=== PATIENT | female | born 1950 | race Caucasian/White ===

== ENCOUNTER 2019-04-08 09:12 | Emergency (ER) | payer MEDICARE, BC ==
[2019-04-08 09:43] LABS: GLUCOSE, URINE (UA) NEGATIVE (NEGATIVE); KETONES,URINE (UA) 15 mg/dL (NEGATIVE); LEUKOCYTE ESTERASE, URINE MODERATE (NEGATIVE); NITRITE,URINE NEGATIVE (NEGATIVE); OCCULT BLOOD,URINE SMALL (NEGATIVE); PROTEIN,URINE NEGATIVE (NEGATIVE); UROBILINOGEN,URINE 0.2 (NORMAL) E.U./dL (NORMAL)
[2019-04-08 09:50] LABS: BILIRUBIN,URINE NEGATIVE (NEGATIVE); CLARITY,URINE CLEAR (CLEAR); ICTOTEST,URINE NEGATIVE
[2019-04-08 09:51] LABS: BACTERIA,URINE Few /HPF (None Seen); RBC,URINE None Seen /HPF (0-5); SQUAMOUS EPITHELIAL CELL,UR FEW Squamous (<= Few)
[2019-04-08 09:51] LABS: BASOPHILS % (AUTO) 0.1 %; EOSINOPHILS # (AUTO) 0.3 10^3/uL (0.0-0.7); EOSINOPHILS % (AUTO) 3.7 %; HGB - HEMOGLOBIN 13.6 g/dL (12.0-16.0); LYMPHOCYTES # (AUTO) 1.2 10^3/uL (1.5-3.5); LYMPHOCYTES % (AUTO) 15.8 %; MEAN CORPUSCULAR VOLUME 90.7 fL (81.0-99.0); MONOCYTES # (AUTO) 0.5 10^3/uL (0.0-1.0); MONOCYTES % (AUTO) 6.4 %; NEUTROPHILS # (AUTO) 5.7 10^3/uL (1.5-6.6); NEUTROPHILS % (AUTO) 73.6 %; PLT - PLATELET COUNT 211 10^3/uL (130-450); RED BLOOD COUNT 4.54 10^6/uL (4.20-5.40); RED CELL DISTRIBUTION WIDTH 12.8 % (12.0-15.0); WHITE BLOOD COUNT 7.7 x10^3/uL (4.8-10.8)
[2019-04-08 10:05] LABS: ALBUMIN 4.2 g/dL (3.2-5.5); ALBUMIN/GLOBULIN RATIO 1.2 (1.0-2.2); BILIRUBIN,TOTAL 0.6 mg/dL (0.2-1.0); CALCIUM 9.2 mg/dL (8.5-10.3); CREATININE 0.8 mg/dL (0.4-1.0); TOTAL PROTEIN 7.6 g/dL (6.7-8.2)
[2019-04-08] MEDS ORDERED: SODIUM CHLORIDE 0.9% 1,000 ML IV ONE (10:14)
[2019-04-08] MEDS ORDERED: FAMOTIDINE 20 MG/2 ML VIAL IVP STA (10:14)
[2019-04-08] MEDS ORDERED: IOVERSOL 320 100 ML VIAL IVP ONE ×2 (10:31→10:39)
--- NOTE | 2019-04-08 11:15 | CT Report ---
Reason: Left sided abdominal pain Procedure Date: 04/08/2019 Accession Number: [id number] / [id number] Procedure: CT - Abdomen/Pelvis W CPT Code: FULL RESULT: EXAM: CT ABDOMEN AND PELVIS EXAM DATE: 04/08/2019 10:38 AM. CLINICAL HISTORY: Left-sided abdominal pain. COMPARISONS: None. TECHNIQUE: Routine helical CT imaging was performed through the abdomen and pelvis. IV contrast: 90 mL of Optiray 320. Enteric contrast: No. Reconstructions: Coronal and sagittal. In accordance with CT protocol optimization, one or more of the following dose reduction techniques were utilized for this exam: automated exposure control, adjustment of mA and/or KV based on patient size, or use of iterative reconstructive technique. FINDINGS: Lung Bases: Linear areas of subsegmental atelectasis in the medial segment of the right middle lobe and the inferior segment of the lingula. The heart size is normal. No hiatal hernia. Liver: Normal. No masses. Gallbladder/Bile Ducts: Unremarkable. Spleen: Normal. Pancreas: Normal. Adrenal Glands: Normal. Kidneys: Normal. No masses or hydronephrosis. Peritoneal Cavity/Bowel: Sigmoid colon diverticulosis without diverticulitis. No free fluid, free air or adenopathy. No masses or acute inflammatory process. The appendix is well visualized and normal. Pelvic Organs: Normal. The bladder and visualized pelvic organs are within normal limits. Vasculature: No aneurysms or other significant abnormality. Bones: No significant abnormality. Bilateral facet arthrosis at L5-S1. Other: None. IMPRESSION: 1. No acute inflammatory process in the abdomen or pelvis. 2. Sigmoid colon diverticulosis without diverticulitis. 3. Normal appendix. 4. Bibasal subsegmental atelectasis. RADIA
[2019-04-08] MEDS ORDERED: cefTRIAXone 1 GM in SODIUM CHLORIDE 0.9% MINIBAG 100 ML IV STA (11:26)
--- NOTE | 2019-04-08 11:26 | ED Physician Documentation ---
PD HPI ABD PAIN - Stated complaint Stated Complaint: ABD SWELLING/UNABLE TO EAT - Chief complaint Chief Complaint: Abd Pain - History obtained from History obtained from: Patient - History of Present Illness Timing - onset: How many days ago (2) Timing - duration: Days (2) Timing - details: Still present Quality: Pain Location: LUQ, Suprapubic Worsened by: Eating Associated symptoms: Fever, Nausea. No: Vomiting, Diarrhea, Dysuria Similar symptoms before: Treatment (History of similar symptoms 4 years ago, treated with pantoprazole.) - Additional information Additional information: The patient is a 68-year-old female who presents with abdominal pain that started 2 days ago and has been waxing and waning since that time. It is located mostly in the left upper quadrant, and is worse with eating. She reports associated nausea, but denies vomiting. She denies diarrhea or dysuria. She has noticed low-grade fever. She reports history of similar symptoms about 4 years ago, treated with pantoprazole. Review of Systems Constitutional: reports: Fever Nose: denies: Congestion Throat: denies: Sore throat Cardiac: denies: Chest pain / pressure Respiratory: denies: Dyspnea, Cough GI: reports: Abdominal Pain, Nausea. denies: Vomiting, Diarrhea : denies: Dysuria Skin: denies: Rash Musculoskeletal: denies: Back pain Neurologic: denies: Headache PD PAST MEDICAL HISTORY - Past Medical History Cardiovascular: High cholesterol Endocrine/Autoimmune: HyPOthyroidism GI: GERD - Past Surgical History Past Surgical History: Yes - Present Medications Home Medications: Ambulatory Orders Medication Instructions Recorded Confirmed Atorvastatin Calcium [Lipitor] 10 mg PO DAILY 04/30/14 04/08/19 Levothyroxine [Synthroid] 50 mcg PO QDAC 05/19/16 04/08/19 Pantoprazole Sodium 40 mg PO BID 09/20/16 04/08/19 Nitrofurantoin Monohyd/M-Cryst 100 mg PO BID #10 capsule 04/08/19 [Macrobid 100 mg Capsule] Phenazopyridine HCl [Pyridium] 200 mg PO TID PRN #6 tablet 04/08/19 - Allergies Allergies/Adverse Reactions: Allergies Allergy/AdvReac Type Severity Reaction Status Date / Time sulfamethoxazole Allergy Nausea Verified 04/08/19 09:19 [From Bactrim] trimethoprim [From Bactrim] Allergy Nausea Verified 04/08/19 09:19 - Social History Does the pt smoke?: No Smoking Status: Never smoker Does the pt drink ETOH?: Yes Does the pt have substance abuse?: No - Immunizations Immunizations are current?: Yes - POLST Patient has POLST: No PD ED PE NORMAL - Vitals Vital signs reviewed: Yes (normal) - General General: Alert and oriented X 3, Well developed/nourished - HEENT HEENT: Atraumatic, Pharynx benign - Neck Neck: No adenopathy, No JVD - Cardiac Cardiac: RRR - Respiratory Respiratory: No respiratory distress, Clear bilaterally - Abdomen Abdomen: Normal bowel sounds, Soft, Other (Mild tenderness to palpation in the left upper quadrant, without rebound tenderness or guarding. There is also mild tenderness in the suprapubic region.) - Back Back: No CVA TTP - Derm Derm: No rash - Extremities Extremities: No edema, No calf tenderness / cord - Neuro Neuro: Alert and oriented X 3, No motor deficit, Normal speech Results - Vitals Vitals: Oxygen O2 Source Room air - Labs Labs: Microbiology 04/08/19 09:25 Urine Culture - Final Urine,Clean Catch 10-50,000 COLONIES/ML Polymicrobial growth including potential pathogens. This is suggestive of skin or other contamination. Laboratory Tests 04/08/19 04/08/19 04/08/19 09:25 09:37 09:37 WBC 7.7 RBC 4.54 Hgb 13.6 Hct 41.2 MCV 90.7 MCH 30.0 MCHC 33.0 RDW 12.8 Plt Count 211 MPV 9.0 Neut # (Auto) 5.7 Lymph # (Auto) 1.2 [place] # (Auto) 0.5 Eos # (Auto) 0.3 Baso # (Auto) 0.0 Absolute Nucleated RBC 0.00 Nucleated RBC % 0.0 Sodium 140 Potassium 3.9 Chloride 101 Carbon Dioxide 26 Anion Gap 13.0 BUN 15 Creatinine 0.8 Estimated GFR (MDRD) 72 L Glucose 108 H Calcium 9.2 Total Bilirubin 0.6 AST 20 ALT 25 Alkaline Phosphatase 52 Total Protein 7.6 Albumin 4.2 Globulin 3.4 Albumin/Globulin Ratio 1.2 Lipase 48 Urine Color YELLOW Urine Clarity CLEAR Urine pH 6.0 Ur Specific [place] 1.010 Urine Protein NEGATIVE Urine Glucose (UA) NEGATIVE Urine Ketones 15 H Urine Occult Blood SMALL H Urine Nitrite NEGATIVE Urine Bilirubin NEGATIVE Urine Urobilinogen 0.2 (NORMAL) Ur Leukocyte Esterase MODERATE H Urine RBC None Seen Urine WBC 6-10 H Ur Squamous Epith Cells FEW Squamous Urine Bacteria Few Ur Microscopic Review INDICATED Urine Culture Comments INDICATED - Rads (name of study) CT abd/pelvis w/ Radiology: Prelim report reviewed, EMP read contemporaneously, See rad report (1) No acute inflammatory process in the abdomen or pelvis. 2) Sigmoid colon diverticulosis without diverticulitis. 3) Normal appendix. 4) Bibasal subsegmental atelectasis.) PD MEDICAL DECISION MAKING - ED course Complexity details: reviewed old records, reviewed results, re-evaluated patient, considered differential, d/w patient ED course: The patient's abdominal pain is most consistent with acid peptic disease. CT scan of the abdomen and pelvis reveals no evidence of perforation, abscess, or other surgical abdominal process. CBC reveals a normal white count of 7.7. Chemistry panel is unremarkable, with normal liver enzymes and lipase. Urinalysis is positive for pyuria and bacteriuria. Her presentation does not suggest pyelonephritis. Treatment in the emergency department included administration of normal saline 1 L IV, famotidine 10 mg IV, and ceftriaxone 1 g IV. She felt subjectively improved after the above treatment, and reexamination reveals a benign abdomen. She is being discharged with prescriptions for Macrobid and Pyridium. She has pantoprazole at home which she will resume taking. I discussed with her the likely diagnosis, outpatient treatment and follow-up, as well as potentially worrisome signs or symptoms that should prompt reevaluation in the emergency department. Departure - Departure Disposition: 01 Home, Self Care Clinical Impression: Gastritis Qualifiers: Gastritis type: unspecified gastritis Chronicity: acute Gastritis bleeding: without bleeding Qualified Code(s): K29.00 - Acute gastritis without bleeding Urinary tract infection Qualifiers: Urinary tract infection type: acute cystitis Hematuria presence: without hematuria Qualified Code(s): N30.00 - Acute cystitis without hematuria Condition: Stable Instructions: ED PUD Vs Gastritis, ED UTI Cystitis Female Follow-Up: ZECHARIAH RIZVI [Primary Care Provider] - Prescriptions: Nitrofurantoin Monohyd/M-Cryst [Macrobid 100 mg Capsule] 100 mg PO BID #10 capsule Phenazopyridine HCl [Pyridium] 200 mg PO TID PRN #6 tablet PRN Reason: dysuria Comments: Take Macrobid twice daily as prescribed. You can use Pyridium as prescribed if needed for painful urination. Resume taking pantoprazole as you have been previously prescribed. You can also use liquid antacid, such as Maalox or Mylanta, if you develop recurrent epigastric discomfort. Follow-up with your primary physician within 1 week. Call to schedule an appointment. Return to the emergency department if you develop increasing abdominal pain, persistent vomiting, fever with shaking chills, or otherwise worsening symptoms. Discharge Date/Time: 04/08/19 14:15
[2019-04-08 14:15] VITALS: BP 124/74
== END 2019-04-08 14:15 | disposition home or self-care (01) ==
LOC: ED 09:12
DX: K29.00 Acute gastritis without bleeding (principal); N30.00 Acute cystitis without hematuria; E78.00 Pure hypercholesterolemia, unspecified; E03.9 Hypothyroidism, unspecified
CPT/HCPCS: 36415; 74177; 80053; 81001; 83690; 85025; 87086; 96361; 96365; 96375; 99283; Q9967; 81003

== ENCOUNTER 2019-04-14 12:14 | Emergency (ER) | payer MEDICARE, BC ==
[2019-04-14] MEDS ORDERED: SODIUM CHLORIDE 0.9% 1,000 ML IV ONE ×3 (12:45→14:27)
[2019-04-14] MEDS ORDERED: ONDANSETRON 4 MG/2 ML VIAL IVP STA (12:46)
--- NOTE | 2019-04-14 13:26 | ED Physician Documentation ---
History of Present Illness - Stated complaint Stated Complaint: CRAMPING/COLD SWEAT - Chief complaint Chief Complaint: Abd Pain - History obtained from History obtained from: Patient - History of Present Illness Timing: Other (ongoing for the past week) Pain level max: 10 Pain level now: 10 - Additonal information Additional information: 68-year-old female presents to the emergency department abdominal pain, nausea, vomiting and diarrhea today. This been ongoing since last week. Was seen here, normal labs, normal CT and treated for UTI. Her doctor told her it to stop with the antibiotics the next day. She has had no fevers. No back pain. She was weak and dizzy today as well. She became clammy when the pain was severe. Review of Systems Constitutional: denies: Fever, Chills Throat: denies: Sore throat Cardiac: denies: Chest pain / pressure Respiratory: denies: Cough GI: reports: Nausea, Vomiting, Diarrhea. denies: Hematemesis, Bloody / black stool Skin: denies: Rash Musculoskeletal: denies: Neck pain, Back pain Neurologic: denies: Headache PD PAST MEDICAL HISTORY - Past Medical History Past Medical History: Yes Cardiovascular: High cholesterol Endocrine/Autoimmune: HyPOthyroidism GI: GERD - Past Surgical History Past Surgical History: Yes - Present Medications Home Medications: Ambulatory Orders Medication Instructions Recorded Confirmed Atorvastatin Calcium [Lipitor] 10 mg PO DAILY 04/30/14 04/08/19 Levothyroxine [Synthroid] 50 mcg PO QDAC 05/19/16 04/08/19 Pantoprazole Sodium 40 mg PO BID 09/20/16 04/08/19 Nitrofurantoin Monohyd/M-Cryst 100 mg PO BID #10 capsule 04/08/19 [Macrobid 100 mg Capsule] Phenazopyridine HCl [Pyridium] 200 mg PO TID PRN #6 tablet 04/08/19 Ciprofloxacin HCl [Cipro] 500 mg PO BID #20 tablet 04/14/19 Hyoscyamine Sulfate [Levsin-Sl] 0.125 mg SL Q6H #14 tab.subl 04/14/19 Metronidazole [Flagyl] 500 mg PO BID #20 tablet 04/14/19 Ondansetron Odt [Zofran] 4 mg TL Q6H PRN #10 tablet 04/14/19 - Allergies Allergies/Adverse Reactions: Allergies Allergy/AdvReac Type Severity Reaction Status Date / Time sulfamethoxazole Allergy Nausea Verified 04/14/19 12:22 [From Bactrim] trimethoprim [From Bactrim] Allergy Nausea Verified 04/14/19 12:22 - Social History Does the pt smoke?: No Smoking Status: Never smoker Does the pt drink ETOH?: Yes Does the pt have substance abuse?: No - Immunizations Immunizations are current?: Yes - POLST Patient has POLST: No PD ED PE NORMAL - Vitals Vital signs reviewed: Yes - General General: Alert and oriented X 3, No acute distress, Well developed/nourished - HEENT HEENT: Moist mucous membranes - Neck Neck: Supple, no meningeal sign - Cardiac Cardiac: RRR, No murmur - Respiratory Respiratory: No respiratory distress, Clear bilaterally - Abdomen Abdomen: Soft, Non distended, Other (Mild diffuse tenderness to palpation.) - Back Back: No CVA TTP, No spinal TTP - Derm Derm: Warm and dry, No rash - Extremities Extremities: No edema - Neuro Neuro: Alert and oriented X 3 - Psych Psych: Normal mood, Normal affect Results - Vitals Vitals: Vital Signs - 24 hr 04/14/19 04/14/19 04/14/19 12:18 12:30 13:32 Temperature 34.0 C L 36.6 C Heart Rate 53 L 57 L 65 Respiratory 18 21 24 Rate Blood Pressure 99/48 L 122/69 106/74 O2 Saturation 100 100 100 04/14/19 04/14/19 14:00 16:05 Temperature 36.8 C Heart Rate 68 77 Respiratory 21 16 Rate Blood Pressure 131/89 H 137/77 H O2 Saturation 95 99 Oxygen O2 Source Room air - EKG (time done) 1239 Rate: Rate (enter#) (58) Rhythm: NSR [place]: Normal Intervals: Normal [place] QRS: Normal Ischemia: Normal ST segments - Labs Labs: Microbiology 04/14/19 13:35 Campylobacter Antigen Assay - Final Stool Laboratory Tests 04/14/19 04/14/19 04/14/19 12:47 13:04 13:04 WBC 12.8 H RBC 4.77 Hgb 14.0 Hct 43.6 MCV 91.4 MCH 29.4 MCHC 32.1 RDW 12.4 Plt Count 275 MPV 9.9 Neut # (Auto) 9.3 H Lymph # (Auto) 2.6 [place] # (Auto) 0.5 Eos # (Auto) 0.4 Baso # (Auto) 0.1 Absolute Nucleated RBC 0.00 Nucleated RBC % 0.0 Sodium 142 Potassium 4.2 Chloride 105 Carbon Dioxide 20 L Anion Gap 17.0 H BUN 22 H Creatinine 0.9 Estimated GFR (MDRD) 62 L Glucose 160 H POC Whole Bld Glucose 138 H Calcium 10.1 Total Bilirubin 1.0 AST 32 ALT 35 Alkaline Phosphatase 58 Total Protein 7.4 Albumin 4.3 Globulin 3.1 Albumin/Globulin Ratio 1.4 Lipase 61 H Urine Color Urine Clarity Urine pH Ur Specific [place] Urine Protein Urine Glucose (UA) Urine Ketones Urine Occult Blood Urine Nitrite Urine Bilirubin Urine Urobilinogen Ur Leukocyte Esterase Ur Microscopic Review Urine Culture Comments C. difficile Tox B Gene 04/14/19 04/14/19 13:35 15:31 WBC RBC Hgb Hct MCV MCH MCHC RDW Plt Count MPV Neut # (Auto) Lymph # (Auto) [place] # (Auto) Eos # (Auto) Baso # (Auto) Absolute Nucleated RBC Nucleated RBC % Sodium Potassium Chloride Carbon Dioxide Anion Gap BUN Creatinine Estimated GFR (MDRD) Glucose POC Whole Bld Glucose Calcium Total Bilirubin AST ALT Alkaline Phosphatase Total Protein Albumin Globulin Albumin/Globulin Ratio Lipase Urine Color YELLOW Urine Clarity CLEAR Urine pH 6.5 Ur Specific [place] <=1.005 Urine Protein NEGATIVE Urine Glucose (UA) NEGATIVE Urine Ketones 15 H Urine Occult Blood NEGATIVE Urine Nitrite NEGATIVE Urine Bilirubin NEGATIVE Urine Urobilinogen 0.2 (NORMAL) Ur Leukocyte Esterase NEGATIVE Ur Microscopic Review NOT INDICATED Urine Culture Comments NOT INDICATED C. difficile Tox B Gene NEGATIVE - Rads (name of study) CT abd/pelvis Radiology: Prelim report reviewed, EMP read contemporaneously, See rad report (Mild diffuse distal bowel wall thickening compatible with an enteritis, infectious versus noninfectious. Minimal diverticulosis and other chronic or incidental findings. ) PD MEDICAL DECISION MAKING - ED course Complexity details: reviewed results, re-evaluated patient, considered differential, d/w patient ED course: 68-year-old female with what appears to be gastroenteritis. She is well- appearing, nontoxic. Afebrile. She appeared to have a vagal reaction to the cramping earlier. This resolved. She had several large bowel movements in the emergency department. Will place on Cipro Flagyl in case this is infectious. Discussed the case with her PCP. Patient is well-appearing, nontoxic. Patient counseled regarding signs and symptoms for which I believe and urgent re- evaluation would be necessary. Patient with good understanding of and agreement to plan and is comfortable going home at this time This document was made in part using voice recognition software. While efforts are made to proofread this document, sound alike and grammatical errors may occur. Departure - Departure Disposition: 01 Home, Self Care Clinical Impression: Gastroenteritis Condition: Good Instructions: ED Gastroenteritis Viral Follow-Up: ZECHARIAH RIZVI [Primary Care Provider] - Within 1 week Prescriptions: Ciprofloxacin HCl [Cipro] 500 mg PO BID #20 tablet Hyoscyamine Sulfate [Levsin-Sl] 0.125 mg SL Q6H #14 tab.subl Metronidazole [Flagyl] 500 mg PO BID #20 tablet Ondansetron Odt [Zofran] 4 mg TL Q6H PRN #10 tablet PRN Reason: Nausea / Vomiting Comments: this should improve over the next few days. Return if you worsen. Drink plenty of water. Discharge Date/Time: 04/14/19 16:26
[2019-04-14 13:28] LABS: BASOPHILS # (AUTO) 0.1 10^3/uL (0.0-0.1); BASOPHILS % (AUTO) 0.5 %; EOSINOPHILS # (AUTO) 0.4 10^3/uL (0.0-0.7); EOSINOPHILS % (AUTO) 2.9 %; LYMPHOCYTES # (AUTO) 2.6 10^3/uL (1.5-3.5); MEAN CORPUSCULAR HEMOGLOBIN 29.4 pg (27.0-31.0); MEAN CORPUSCULAR HGB CONC 32.1 g/dL (32.0-36.0); MEAN CORPUSCULAR VOLUME 91.4 fL (81.0-99.0); MEAN PLATELET VOLUME 9.9 fL (7.9-10.8); MONOCYTES # (AUTO) 0.5 10^3/uL (0.0-1.0); MONOCYTES % (AUTO) 3.7 %; NEUTROPHILS # (AUTO) 9.3 10^3/uL (1.5-6.6); NEUTROPHILS % (AUTO) 72.3 %; PLT - PLATELET COUNT 275 10^3/uL (130-450); RED BLOOD COUNT 4.77 10^6/uL (4.20-5.40); RED CELL DISTRIBUTION WIDTH 12.4 % (12.0-15.0); WHITE BLOOD COUNT 12.8 x10^3/uL (4.8-10.8)
[2019-04-14] MEDS ORDERED: MORPHINE 2 MG/ML CARPUJECT IVP STA (13:33)
[2019-04-14] MEDS ORDERED: HYOSCYAMINE SL 0.125 MG TABLET SL STA (13:33)
[2019-04-14 13:42] LABS: ALBUMIN 4.3 g/dL (3.2-5.5); ALBUMIN/GLOBULIN RATIO 1.4 (1.0-2.2); CALCIUM 10.1 mg/dL (8.5-10.3); CREATININE 0.9 mg/dL (0.4-1.0); TOTAL PROTEIN 7.4 g/dL (6.7-8.2)
[2019-04-14] MEDS ORDERED: IOVERSOL 320 100 ML VIAL IVP ONE ×2 (13:44→13:57)
--- NOTE | 2019-04-14 14:18 | CT Report ---
Reason: diffuse abd pain, vomiting, diarrhea Procedure Date: 04/14/2019 Accession Number: [id number] / [id number] Procedure: CT - Abdomen/Pelvis W CPT Code: FULL RESULT: EXAM: CT ABDOMEN AND PELVIS EXAM DATE: 04/14/2019 01:56 PM. CLINICAL HISTORY: Diffuse abd pain, vomiting, diarrhea. COMPARISONS: ABDOMEN/PELVIS W/ 04/08/2019 10:36 AM. TECHNIQUE: Routine helical CT imaging was performed through the abdomen and pelvis. IV contrast: OPTI 320 90ML. Enteric contrast: No. Reconstructions: Coronal and sagittal. In accordance with CT protocol optimization, one or more of the following dose reduction techniques were utilized for this exam: automated exposure control, adjustment of mA and/or KV based on patient size, or use of iterative reconstructive technique. FINDINGS: Lung Bases: Unremarkable. Liver: Small hemangioma in posterior right lobe. Otherwise unremarkable. Gallbladder/Bile Ducts: Unremarkable. Spleen: Normal. Pancreas: Normal. Adrenal Glands: Normal. Kidneys: Normal. No masses or hydronephrosis. Peritoneal Cavity/Bowel: Minimal colonic diverticulosis. Mild diffuse wall thickening in the distal descending and sigmoid colon measuring about 6 mm. No bowel dilation, free fluid, free air, or lymphadenopathy. Minimal prominence of mesenteric lymph nodes increased slightly since previous exam. The appendix is well visualized and normal. Pelvic Organs: Unremarkable urinary bladder. Retroflexed uterus. Vasculature: No aneurysms or other significant abnormality. Bones: No significant abnormality. Other: None. IMPRESSION: 1. Mild diffuse distal bowel wall thickening compatible with an enteritis, infectious versus noninfectious. 2. Minimal diverticulosis and other chronic or incidental findings. RADIA
[2019-04-14 15:48] LABS: BILIRUBIN,URINE NEGATIVE (NEGATIVE); GLUCOSE, URINE (UA) NEGATIVE (NEGATIVE); KETONES,URINE (UA) 15 mg/dL (NEGATIVE); LEUKOCYTE ESTERASE, URINE NEGATIVE (NEGATIVE); NITRITE,URINE NEGATIVE (NEGATIVE); OCCULT BLOOD,URINE NEGATIVE (NEGATIVE); PH,URINE 6.5 PH (5.0-7.5); PROTEIN,URINE NEGATIVE (NEGATIVE); UROBILINOGEN,URINE 0.2 (NORMAL) E.U./dL (NORMAL)
[2019-04-14 15:49] LABS: CLARITY,URINE CLEAR (CLEAR)
[2019-04-14 16:06] VITALS: BP 137/77
== END 2019-04-14 16:26 | disposition home or self-care (01) ==
LOC: ED 12:14
DX: K52.9 Noninfective gastroenteritis and colitis, unspecified (principal)
CPT/HCPCS: 36415; 74177; 80053; 81003; 83690; 85025; 87045; 87046; 87493; 93005; 96361; 96374; 99284; A9270; Q9967; 81001; 87086

== ENCOUNTER 2023-10-10 08:00 | Outpatient (CLI) | payer MEDICARE, BC | END 2023-10-10 23:59 | disposition home or self-care (01) | LOC: LAB.N 08:00 | PROVIDERS: ATTEND Physician Assistant Medical | DX: R10.2 Pelvic and perineal pain (principal) | CPT/HCPCS: 87077; 87086; 87181 ==

== ENCOUNTER 2023-10-19 15:15 | Outpatient (CLI) | payer MEDICARE, BC ==
[2023-10-19 17:47] LABS: BASOPHILS % (AUTO) 0.4 %; EOSINOPHILS # (AUTO) 0.1 10^3/uL (0.0-0.7); HCT - HEMATOCRIT 43.7 % (37.0-47.0); LYMPHOCYTES # (AUTO) 2.5 10^3/uL (1.5-3.5); LYMPHOCYTES % (AUTO) 25.8 %; MEAN CORPUSCULAR VOLUME 90.7 fL (81.0-99.0); MEAN PLATELET VOLUME 10.2 fL (7.9-10.8); MONOCYTES # (AUTO) 0.7 10^3/uL (0.0-1.0); MONOCYTES % (AUTO) 6.8 %; NEUTROPHILS # (AUTO) 6.3 10^3/uL (1.5-6.6); NEUTROPHILS % (AUTO) 65.6 %; PLT - PLATELET COUNT 322 10^3/uL (130-450); RED BLOOD COUNT 4.82 10^6/uL (4.20-5.40); RED CELL DISTRIBUTION WIDTH 12.6 % (12.0-15.0); WHITE BLOOD COUNT 9.7 x10^3/uL (4.8-10.8)
== END 2023-10-19 15:30 | disposition home or self-care (01) ==
LOC: LAB.N 15:15
PROVIDERS: ATTEND Family Medicine
DX: R10.2 Pelvic and perineal pain (principal)
CPT/HCPCS: 36415; 85025; 87086